=== PATIENT | female | born 1975 | race Caucasian/White ===

== ENCOUNTER → 2017-02-13 | Day surgery (SDC) | payer BC ==
[~2017-02-13] VITALS: Ht 160 cm; Wt 136.1 kg
[~2017-02-13] MED LIST: CIPR500T94 PO; DEXAMETHASONE SOD PHOS 20 MG/5 ML VIAL. ONE; FENTANYL PF 100 MCG/2 ML VIAL. IV PRN; FENTANYL PF 100 MCG/2 ML VIAL. ONE; HYDROMORPHONE 2 MG/ML VIAL. IV PRN; IBUP-1027 PO; IOHEXOL 300 MG/ML 50 ML VIAL. ONE; IV RINGERS,LACTATED 1000ML 1,000 ML IV SCH; LIDOCAINE 1% 1 ML SYRINGE. ID PRN; LIDOCAINE 2% 100 MG/5 ML DISP.SYRIN. ONE; MIDAZOLAM HCL 2 MG/2 ML VIAL. ONE; MIRA50TA PO; MORPHINE SULFATE 2 MG/ML DISP.SYRIN. IV PRN; ONDANSETRON PF 4 MG/2 ML VIAL. IV PRN; ONDANSETRON PF 4 MG/2 ML VIAL. ONE; PROCHLORPERAZINE 10 MG/2 ML VIAL. IV PRN; PROPOFOL 20 ML IV ONE
[2017-02-13 08:04] LABS: NEG OBC UR NEG; POS OBC UR POS
--- NOTE | 2017-02-13 09:12 | PDOC ---
BRIEF OPERATIVE NOTE Date: Feb 13, 2017 Pre-Op Diagnosis Chronic microscopic hematuria, Incontinence Post-Op Diagnosis Same, Cystitis, mild cystocele Procedure Performed Cystoscopy bilateral retrograde pyelograms Surgeon Davina Anesthesia Type: General Specimens Obtained None Findings Mild cystitis, mild cystocele, normal retrogrades Complications None Additional Remarks Tolerated well SKYLA CASTANEDA DO Feb 13, 2017 09:12
--- NOTE | 2017-02-13 09:13 | DISCH ---
DISCHARGE INSTRUCTIONS Condition on Discharge Condition on Discharge: Stable Activity After Discharge Activity Instructions for Disc: Resume previous activity Driving Instructions after Dis: Do not drive today Diet after Discharge Diet after Discharge: Regular Contacting the DRBrayden after DC Call your doctor for: Concerns you may have Follow-Up Follow up with: Dr Castaneda in about 10days SKYLA CASTANEDA DO Feb 13, 2017 09:13
[2017-02-13] MEDS: FENTANYL PF 100 MCG/2 ML VIAL. IV PRN ×2 (09:28→09:41)
[2017-02-13 09:53] VITALS: BP 129/76
--- NOTE | 2017-02-13 10:36 | OP ---
DATE OF SURGERY: 02/13/2017 PREOPERATIVE DIAGNOSES: Chronic microscopic hematuria, urgency, incontinence, obesity. POSTOPERATIVE DIAGNOSES: Chronic microscopic hematuria, urgency, incontinence, obesity, plus cystitis, mild cystocele. PROCEDURE: Cystoscopy, bilateral retrograde pyelograms. SURGEON: Skyla Castaneda DO. ANESTHESIA: General. INDICATIONS AND JUDGMENT: This is a 41-year-old female, morbidly obese, with a history of chronic microscopic hematuria. She is a heavy smoker. A renal ultrasound was performed which revealed normal kidneys. The patient also has a history of urgency type urinary incontinence. It was felt that she should undergo cystoscopy, possible bladder biopsies, and bilateral retrograde pyelograms. The procedure was explained to the patient. She appeared to understand and was agreeable. DESCRIPTION OF PROCEDURE: The patient was preloaded with IV antibiotics, taken to the operating room, placed on the operating room table, given a general anesthetic, and then placed in a dorsal lithotomy position using Giorgio stirrups since we do not have a cystoscopy table. A C-arm was moved into position. Due to the patient's obesity, it was difficult to find the urethra. Finally, the urethra was identified and the scope was advanced. A urine sample was obtained and sent for urinalysis. Rigid cystoscopy was performed. The bladder was carefully examined with a 30-degree and 70-degree lens. She has a mild cystocele. There was inflammation on the floor of the bladder consistent with low-grade cystitis. There were no tumors or stones identified. The ureteral orifices were normal bilaterally. I cannulated the left ureteral orifice. Contrast was injected. The course and caliber of left ureter was normal. There were no filling defects. Left renal pelvis appeared to be normal. The calices were sharp. The drainage film was immediate without signs of obstruction. Attention was then directed to the right ureter. The right ureteral orifice was identified, cannulated with the 8-Bahamian cone tip ureteral catheter. Contrast was injected. The course and caliber of that ureter was normal. There were no filling defects. The right renal pelvis and calices were normal in appearance. The drainage film was immediate and complete. It was felt that these were normal bilateral retrograde pyelograms. She definitely has a mild cystocele and changes of [id number] cystitis. No biopsies were taken. The scope was removed. She tolerated the procedure well. Plans will be to discharge the patient home with a prescription for Cipro 500 mg p.o. b.i.d. for 3 days. I placed her on a prescription for Myrbetriq 50 mg daily for her urgency incontinence. She will follow up in the office in the next few weeks. SKYLA CASTANEDA DO DR: Jalil JOB#: [id number] / [id number]
== END | disposition home or self-care (01) ==
LOC: SURG 06:05
PROVIDERS: ATTEND Urology
DX: N39.41 Urge incontinence (principal); N30.91 Cystitis, unspecified with hematuria; N81.10 Cystocele, unspecified; E66.9 Obesity, unspecified; E78.00 Pure hypercholesterolemia, unspecified; F41.9 Anxiety disorder, unspecified; F32.9 Major depressive disorder, single episode, unspecified; Z72.89 Other problems related to lifestyle; Z87.39 Personal history of other diseases of the musculoskeletal system and connective tissue
CPT/HCPCS: 52005; 74420; 81025; 87086; C1769; J1100; J1956; J2250; J2405; J2704; J3010; Q9967